=== PATIENT | male | born 1960 | race Two or more races ===

== ENCOUNTER 2017-06-15 22:55 | Emergency (ER) | payer OTHER ==
[~2017-06-15] VITALS: Ht 165.1 cm; Wt 70.3 kg
[2017-06-15] MEDS ORDERED: IBUPROFEN 600 MG TABLET PO ONE ×2 (23:17→23:30)
[2017-06-16 00:49] VITALS: BP 146/89
== END 2017-06-16 00:51 | disposition home or self-care (01) ==
LOC: ER 22:57
DX: S39.012A Strain of muscle, fascia and tendon of lower back, initial encounter (principal); S80.02XA Contusion of left knee, initial encounter; Z96.652 Presence of left artificial knee joint; V43.52XA Car driver injured in collision with other type car in traffic accident, initial encounter; Y93.89 Activity, other specified; Y92.413 State road as the place of occurrence of the external cause; Y99.8 Other external cause status
CPT/HCPCS: 73564; 99284; A4606; Z7610